=== PATIENT | male | born 1960 | race Two or more races ===

== ENCOUNTER → 2017-06-21 | Outpatient (CLI) | payer OTHER ==
[~2017-06-21] MED LIST: IOHEXOL 300 MG/ML 100ML BOTTLE IJ ONE
[2017-06-21 11:14] LABS: Albumin 3.2 g/dL (3.4-5.0); BUN/Creatinine Ratio 17.4; Bilirubin, Total 2.3 mg/dL (0.2-1.0); Potassium 3.8 mmol/L (3.5-5.1); Total Protein 7.7 g/dL (6.4-8.2)
== END | disposition home or self-care (01) ==
LOC: CT 09:37
DX: K74.60 Unspecified cirrhosis of liver (principal); I81 Portal vein thrombosis; C22.0 Liver cell carcinoma; C79.89 Secondary malignant neoplasm of other specified sites
CPT/HCPCS: 36415; 74178; 80053; Q9967